=== PATIENT | female | born 1960 | race Caucasian/White ===

== ENCOUNTER 2023-05-21 12:52 | Outpatient (CLI) | payer MEDICARE, BC, SELFPAY | END 2023-05-21 12:53 | disposition home or self-care (01) | PROVIDERS: PCP Physician Assistant Medical; Visit Provider Nurse Practitioner Family | DX: T81.31XA Disruption of external operation (surgical) wound, not elsewhere classified, initial encounter (principal); M79.2 Neuralgia and neuritis, unspecified | CPT/HCPCS: 11042; 99213 ==

== ENCOUNTER 2023-07-02 12:44 | Outpatient (CLI) | payer MEDICARE, BC, SELFPAY | END 2023-07-02 12:45 | disposition home or self-care (01) | LOC: WOUND 12:49 | PROVIDERS: PCP Physician Assistant Medical; Visit Provider Nurse Practitioner Family | DX: T81.31XA Disruption of external operation (surgical) wound, not elsewhere classified, initial encounter (principal); M79.2 Neuralgia and neuritis, unspecified | CPT/HCPCS: 11042 ==

== ENCOUNTER 2023-07-02 13:46 | Outpatient (CLI) | payer MEDICARE, SELFPAY ==
--- NOTE | 2023-07-02 14:00 | CRLHL7_ITS ---
For Patients: As a result of the Cures Act, medical imaging exams and procedure reports are released immediately into your electronic medical record. You may view this report before your referring provider. If you have questions, please contact your health care provider. Indication: Disruption surgical wound Technique: Left foot 3 views Comparison: None Findings: Posterior calcaneal spur is present. Chronic curvilinear density adjacent to the distal talus fusion hardware across the calcaneocuboid joint with incomplete osseous bridging. The most proximal fixation screw is fractured. No periostitis or cortical destruction. No fracture. Degenerative changes of the 1st MTP joint. Impression: Fractured fixation screw in the anterior calcaneus. No fracture. No evidence of osteomyelitis. Dictated by Joni Murphy MD @ 07/02/2023 2:21:59 PM (Electronically Signed)
== END 2023-07-02 13:47 | disposition home or self-care (01) ==
LOC: RAD 13:48
PROVIDERS: PCP Physician Assistant Medical; Visit Provider Nurse Practitioner Family
DX: T81.30XA Disruption of wound, unspecified, initial encounter (principal)
CPT/HCPCS: 11042; 73630

== ENCOUNTER 2023-07-09 12:53 | Outpatient (CLI) | payer MEDICARE, SELFPAY | END 2023-07-09 12:54 | disposition home or self-care (01) | LOC: WOUND 12:54 | PROVIDERS: PCP Physician Assistant Medical; Visit Provider Nurse Practitioner Family | DX: T81.31XA Disruption of external operation (surgical) wound, not elsewhere classified, initial encounter (principal); M79.2 Neuralgia and neuritis, unspecified | CPT/HCPCS: 11042 ==

== ENCOUNTER 2023-07-16 13:08 | Outpatient (CLI) | payer MEDICARE, SELFPAY | END 2023-07-16 13:09 | disposition home or self-care (01) | LOC: WOUND 13:09 | PROVIDERS: PCP Physician Assistant Medical; Visit Provider Nurse Practitioner Family | DX: T81.31XA Disruption of external operation (surgical) wound, not elsewhere classified, initial encounter (principal); M79.2 Neuralgia and neuritis, unspecified | CPT/HCPCS: 11042 ==

== ENCOUNTER 2023-07-23 08:56 | Outpatient (CLI) | payer MEDICARE, SELFPAY | END 2023-07-23 08:57 | disposition home or self-care (01) | PROVIDERS: PCP Physician Assistant Medical; Visit Provider Nurse Practitioner Family | DX: T81.31XA Disruption of external operation (surgical) wound, not elsewhere classified, initial encounter (principal) | CPT/HCPCS: 11043 ==

== ENCOUNTER 2023-07-29 10:29 | Outpatient (CLI) | payer MEDICARE, SELFPAY ==
[2023-07-29 12:20] LABS: Basophils Absolute Auto 0.04 K/uL (0.00-0.30); Basophils Percent Auto 0.7 % (0.0-3.0); Eosinophils Percent Auto 7.9 % (0.0-7.0); Hematocrit 44.4 % (33.0-51.0); Hemoglobin* 15.3 gm/dL (12.0-16.0); Immature Granulocytes Abs Auto 0.01 K/uL (0.00-0.30); Immature Granulocytes Pct Auto 0.2 %; Lymphocytes Absolute Auto 2.13 K/uL (0.90-2.90); Lymphocytes Percent Auto 35.3 % (20-44); Mean Corpuscular HGB Conc 35 gm/dL (32-36); Mean Corpuscular Hemoglobin 29 pg (26-34); Mean Corpuscular Volume 84 fL (80-100); Monocytes Percent Auto 7.5 % (0.0-11.0); Neutrophils Absolute Auto 2.93 K/uL (1.7-7.0); Neutrophils Percent Auto 48.4 % (42.0-72.0); Platelet Count* 304 K/uL (140-440); RDW Coefficient of Variation % 12.9 % (11.5-15.5); Red Blood Count 5.28 m/uL (4.00-5.20); White Blood Count* 6.04 K/uL (4.50-11.00)
[2023-07-29 12:27] LABS: Slide Review Reflex No
[2023-07-29 12:41] LABS: Hemoglobin A1C* 4.82 % (0-5.6)
[2023-07-29 12:45] LABS: Chloride* 108 mmol/L (96-114); Potassium* 4.1 mmol/L (3.6-5.1); Sodium* 143 mmol/L (135-149)
[2023-07-29 12:48] LABS: Creatinine* 0.8 mg/dL (0.5-1.5); Estimated Glomerular Filt Rate 82 ml/min
[2023-07-29 12:49] LABS: Anion Gap 12 mEq/L (7-15); Blood Urea Nitrogen* 16 mg/dL (7-30); Calcium* 9.9 mg/dL (8.4-10.6); Carbon Dioxide* 23 mmol/L (20-32); Glucose* 82 mg/dL (60-115)
[2023-07-29 12:52] LABS: C Reactive Protein* 0.6 mg/dL (0.5-1.0)
[2023-07-29 13:24] LABS: Erythrocyte SedimentationRate* 18 mm/hr (2-20)
[2023-07-29 17:24] LABS: Ferritin* 86.4 ng/mL (11.1-264.0)
[2023-07-31 01:10] LABS: Prealbumin 22.7 mg/dL (20.0-40.0)
== END 2023-07-29 10:30 | disposition home or self-care (01) ==
LOC: WOUND 10:29
PROVIDERS: PCP Physician Assistant Medical; Visit Provider Nurse Practitioner Family
DX: T81.31XA Disruption of external operation (surgical) wound, not elsewhere classified, initial encounter (principal); M79.672 Pain in left foot; M79.2 Neuralgia and neuritis, unspecified; R79.9 Abnormal finding of blood chemistry, unspecified; I25.10 Atherosclerotic heart disease of native coronary artery without angina pectoris
CPT/HCPCS: 36415; 80048; 82728; 83036; 84134; 84630; 85025; 85651; 86140; 87070; 87077; 87186; 97597

== ENCOUNTER 2023-08-06 12:46 | Outpatient (CLI) | payer MEDICARE, SELFPAY | END 2023-08-06 12:47 | disposition home or self-care (01) | LOC: WOUND 12:46 | PROVIDERS: PCP Physician Assistant Medical; Visit Provider Nurse Practitioner Family | DX: T81.31XA Disruption of external operation (surgical) wound, not elsewhere classified, initial encounter (principal) | CPT/HCPCS: 11042 ==

== ENCOUNTER 2023-08-11 14:14 | Outpatient (CLI) | payer MEDICARE, SELFPAY ==
--- NOTE | 2023-08-11 14:30 | CRLHL7_ITS ---
For Patients: As a result of the Century Cures Act, medical imaging exams and procedure reports are released immediately into your electronic medical record. You may view this report before your referring provider. If you have questions, please contact your health care provider. HISTORY: Disruption of surgical wound. TECHNIQUE: Noncontrast and contrast enhanced MRI of the left foot. 18 mL of dotarem intravenous gadolinium was administered. [id number] includes the hindfoot, midfoot and proximal most forefoot. COMPARISON: Radiographs from 07/02/2023. FINDINGS: Tendons: The posteromedial flexor tendons are intact. The anterior extensor tendons are intact. Os peroneum is present within the peroneus longus tendon. The peroneus longus tendon is intact. Peroneus brevis tendon intact. Distal Achilles tendon intact. - Ligaments: The anterior and posterior syndesmotic ligaments are intact. Deltoid ligament intact. Lateral ankle ligamentous structures intact. Sinus tarsi fat is maintained. Calcaneonavicular spring ligament intact. Lisfranc ligament complex intact. - Joint spaces: The ankle and subtalar articulations are maintained. Talonavicular joint space maintained. There is susceptibility artifact related to calcaneal cuboid fusion procedure. There is some bone marrow edema within the calcaneus and cuboid bone which is not unusual in the setting of a fusion procedure. Degree of a potential fusion may be better determined by radiographs or CT. The navicular - cuneiform articulations are maintained. Tarsal-metatarsal articulations are maintained. - Bones and soft tissues: There is no localized soft tissue fluid collection to suggest a soft tissue abscess. There is no acute fracture. No confluent effacement of fatty marrow is noted. The proximal plantar fascia is intact. IMPRESSION: 1. Postsurgical changes of calcaneocuboid joint fusion procedure with associated susceptibility artifact. 2. No soft tissue fluid collection. 3. Bone marrow edema within the calcaneus and cuboid bone is not unexpected in the setting of fusion procedure. 4. No evidence of septic arthritis. Dictated by Ruperto Montgomery MD @ 08/12/2023 10:25:34 AM (Electronically Signed)
== END 2023-08-11 14:15 | disposition home or self-care (01) ==
LOC: MRI 14:16
PROVIDERS: PCP Physician Assistant Medical; Visit Provider Nurse Practitioner Family
DX: T81.30XD Disruption of wound, unspecified, subsequent encounter
CPT/HCPCS: 73720; A9575

== ENCOUNTER 2023-08-13 11:00 | Outpatient (CLI) | payer MEDICARE, SELFPAY | END 2023-08-13 11:01 | disposition home or self-care (01) | LOC: WOUND 11:00 | PROVIDERS: PCP Physician Assistant Medical; Visit Provider Nurse Practitioner Family | DX: T81.31XA Disruption of external operation (surgical) wound, not elsewhere classified, initial encounter (principal); M79.2 Neuralgia and neuritis, unspecified | CPT/HCPCS: 11042 ==

== ENCOUNTER 2023-08-20 09:26 | Outpatient (CLI) | payer MEDICARE, SELFPAY | END 2023-08-20 09:27 | disposition home or self-care (01) | LOC: WOUND 09:26 | PROVIDERS: PCP Physician Assistant Medical; Visit Provider Nurse Practitioner Family | DX: T81.31XA Disruption of external operation (surgical) wound, not elsewhere classified, initial encounter (principal); M79.2 Neuralgia and neuritis, unspecified | CPT/HCPCS: 11042 ==

== ENCOUNTER 2023-08-27 08:10 | Outpatient (CLI) | payer MEDICARE, SELFPAY | END 2023-08-27 08:11 | disposition home or self-care (01) | LOC: WOUND 08:10 | PROVIDERS: PCP Physician Assistant Medical; Visit Provider Nurse Practitioner Family | DX: T81.31XA Disruption of external operation (surgical) wound, not elsewhere classified, initial encounter (principal); M79.2 Neuralgia and neuritis, unspecified | CPT/HCPCS: 97597 ==

== ENCOUNTER 2023-09-03 09:29 | Outpatient (CLI) | payer MEDICARE, SELFPAY | END 2023-09-03 09:30 | disposition home or self-care (01) | LOC: WOUND 09:29 | PROVIDERS: PCP Physician Assistant Medical; Visit Provider Family Medicine | DX: T81.31XA Disruption of external operation (surgical) wound, not elsewhere classified, initial encounter (principal); M79.2 Neuralgia and neuritis, unspecified | CPT/HCPCS: 11042 ==

== ENCOUNTER 2023-09-10 08:13 | Outpatient (CLI) | payer MEDICARE, SELFPAY | END 2023-09-10 08:14 | disposition home or self-care (01) | LOC: WOUND 08:13 | PROVIDERS: PCP Physician Assistant Medical; Visit Provider Nurse Practitioner Family | DX: T81.31XA Disruption of external operation (surgical) wound, not elsewhere classified, initial encounter (principal) | CPT/HCPCS: 11042 ==

== ENCOUNTER 2023-09-24 15:11 | Outpatient (CLI) | payer MEDICARE, SELFPAY | END 2023-09-24 15:12 | disposition home or self-care (01) | LOC: WOUND 15:11 | PROVIDERS: PCP Physician Assistant Medical; Visit Provider Nurse Practitioner Family | DX: T81.31XA Disruption of external operation (surgical) wound, not elsewhere classified, initial encounter (principal); M79.2 Neuralgia and neuritis, unspecified | CPT/HCPCS: 99212 ==

== ENCOUNTER 2023-10-08 12:57 | Outpatient (CLI) | payer MEDICARE, SELFPAY | END 2023-10-08 12:58 | disposition home or self-care (01) | LOC: WOUND 12:57 | PROVIDERS: PCP Physician Assistant Medical; Visit Provider Nurse Practitioner Family | DX: T81.31XA Disruption of external operation (surgical) wound, not elsewhere classified, initial encounter (principal); M79.2 Neuralgia and neuritis, unspecified | CPT/HCPCS: 99212 ==